=== PATIENT | female | born 1955 | race Caucasian/White ===

== ENCOUNTER → 2018-10-11 | Outpatient (CLI) | payer OTHER, MEDICARE | LOC: FIMAGING 08:47 | PROVIDERS: ATTEND Family Medicine | DX: Z13.820 Encounter for screening for osteoporosis (principal); M81.0 Age-related osteoporosis without current pathological fracture; Z78.0 Asymptomatic menopausal state ==

== ENCOUNTER → 2018-12-13 | Outpatient (CLI) | payer OTHER, MEDICARE | LOC: CIMAGING 08:48 | PROVIDERS: ATTEND Family Medicine | DX: R93.89 Abnormal findings on diagnostic imaging of other specified body structures (principal); D25.0 Submucous leiomyoma of uterus; I86.2 Pelvic varices; R10.2 Pelvic and perineal pain | CPT/HCPCS: 76856-PO ==